=== PATIENT | female | born 1970 | race Caucasian/White ===

== ENCOUNTER 2019-04-21 15:50 | Emergency (ER) | payer MEDICAID ==
[~2019-04-21] VITALS: Ht 157.5 cm; Wt 99.8 kg
[2019-04-21 15:57] VITALS: Ht 157.5 cm; Wt 99.8 kg
[2019-04-21 20:56] LABS: BASOPHIL % 0.3 % (0-2); PLATELET COUNT 322 x10^3mcL (130-400)
[2019-04-21 21:05] LABS: CALCIUM 8.9 mg/dL (8.5-10.1); CARBON DIOXIDE 27.9 mmol/L (21-32); CHLORIDE SERUM 105 mmol/L (98-107); CREATININE SERUM 0.4 mg/dL (0.6-1.0); GFR1 > 60 mL/min; GLUCOSE SERUM 90 mg/dL (74-106); POTASSIUM SERUM 3.9 mmol/L (3.5-5.1); SODIUM SERUM 140 mmol/L (136-145)
[2019-04-21 21:19] LABS: FREE T4 0.85 ng/dL (0.76-1.46)
[2019-04-21 21:48] LABS: microscopic required? YES; urine erythrocyte NEGATIVE (NEGATIVE)
[2019-04-21 22:57] VITALS: BP 147/51
== END 2019-04-21 22:59 | disposition home or self-care (01) ==
LOC: ED 15:50
PROVIDERS: Emergency Medicine
DX: N39.0 Urinary tract infection, site not specified (principal); R42 Dizziness and giddiness; I10 Essential (primary) hypertension; E78.00 Pure hypercholesterolemia, unspecified; R20.2 Paresthesia of skin; R20.0 Anesthesia of skin
CPT/HCPCS: 36415; 84439; J2270; J8597; Q0092; Q0162